=== PATIENT | female | born 1960 | race American Indian/Alaskan Native ===

== ENCOUNTER 2018-12-01 18:46 | Emergency (ER) | payer OTHER ==
[2018-12-01 20:11] VITALS: BP 153/85
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
--- NOTE | 2018-12-01 22:49 | Cat Scan Report ---
PROCEDURE: CT CERVICAL SPINE WO CON TECHNIQUE: Computerized tomography of the cervical spine was performed from the skull base to T1 wit hout contrast material. CT DOSE LENGTH PRODUCT: 686.6 mGycm HISTORY: pain COMPARISONS: None . FINDINGS: There is multilevel degenerative disc disease with disc space narrowing and marginal osteophytes C4-C 5 C5-C6. The vertebral bodies are normal in height. The facet joints demonstrate normal alignment. Sp inous processes are intact. C1 and C2 are unremarkable.. IMPRESSION: Degenerative disc disease C4-C5 C5-C6 No additional abnormality seen This document is electronically signed by Justin Smart MD., December 01 2018 10:47:42 PM ET
[2018-12-02] MEDS ORDERED: IBUPROFEN PO ONE (00:12)
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
== END 2018-12-02 01:00 | disposition home or self-care (01) ==
LOC: ED 18:46
DX: S13.4XXA Sprain of ligaments of cervical spine, initial encounter (principal); Z79.899 Other long term (current) drug therapy; V89.2XXA Person injured in unspecified motor-vehicle accident, traffic, initial encounter; Y93.89 Activity, other specified; Y92.488 Other paved roadways as the place of occurrence of the external cause; Y99.8 Other external cause status
CPT/HCPCS: 72125; 99284